=== PATIENT | male | born 1940 | race Caucasian/White ===

== ENCOUNTER 2016-03-18 20:45 | Emergency (ER) | payer OTHER, BC ==
[2016-03-18 21:05] VITALS: BP 134/77; PULSE 69; TEMP 97.7; BMI 20.9
--- NOTE | 2016-03-18 21:31 | PDOC ---
History of Present Illness - General Chief Complaint: Rash Stated Complaint: RASH Time Seen by Provider: 03/18/16 21:18 History Source: Patient Exam Limitations: No Limitations - History of Present Illness Initial Comments: 03/18/16 21:32 CC several months of occasionally itchy rash scattered over body ; see by DR Douglass DerM at [facility]; treated for Scabies x 2 treatment s x 2 weeks ago, no better Severity: Yes: mild Location: reports: generalized Modifying Factors: improves with: antihistamine, other (permethrin x 2 doses last 2 weeks ago) Past History - Past Medical History Allergies/Adverse Reactions: Allergies Allergy/AdvReac Type Severity Reaction Status Date / Time No Known Allergies Allergy Verified 03/18/16 21:02 Home Medications: Ambulatory Orders NK [No Known Home Medication] 03/18/16 - Surgical History Appendectomy: Yes - Psycho/Social/Smoking Cessation Hx Suicidal Ideation: No Smoking History: Never smoked Have you smoked in the past 12 months: No Information on smoking cessation initiated: No Hx Alcohol Use: No Drug/Substance Use Hx: No Review of Systems - Review of Systems Constitutional: No: Chills, Fever, Malaise HEENTM: No: Symptoms Reported Respiratory: No: Symptoms reported, Cough Cardiac (ROS): No: Symptoms Reported Integumentary: Yes: Rash *Physical Exam - Vital Signs Last Vital Signs Temp Pulse Resp BP Pulse Ox 97.7 F 69 14 134/77 98 03/18/16 21:03 03/18/16 21:03 03/18/16 21:03 03/18/16 21:03 03/18/16 21:03 - Physical Exam General Appearance: Yes: Appropriately Dressed. No: Apparent Distress HEENT: positive: TMs Normal, Pharynx Normal Respiratory/Chest: positive: Lungs Clear Integumentary: positive: Other (scattered red ppustulars ~ 6 noted to anterior and posterior torso; hands not involved) Medical Decision Making - Medical Decision Making 03/18/16 21:43 will refer back to local derm/ Dr Douglass or to our derm Dr Miles for 2nd opinion *DC/Admit/Observation/Transfer Diagnosis at time of Disposition: Rash and nonspecific skin eruption - Discharge Dispostion Disposition: HOME Condition at time of disposition: Stable Admit: No - Referrals Referrals: Krzysztof Goodman MD [Primary Care Provider] - Enid Miles MD [Staff Physician] - - Patient Instructions Additional Instructions: PLease follow up with Dr Miles this week or return to DR Douglass for follow up
== END 2016-03-18 21:45 | disposition home or self-care (01) ==
LOC: JERFT 20:45
DX: R21 Rash and other nonspecific skin eruption (principal)
CPT/HCPCS: 99281-25

== ENCOUNTER 2020-07-04 15:13 | Emergency (ER) | payer OTHER, BC ==
[2020-07-04 15:21] VITALS: BP 162/81; PULSE 72; TEMP 98; BMI 25.1
== END 2020-07-04 16:30 | disposition home or self-care (01) ==
LOC: JER 15:13
DX: S40.861A Insect bite (nonvenomous) of right upper arm, initial encounter (principal); S30.860A Insect bite (nonvenomous) of lower back and pelvis, initial encounter; W57.XXXA Bitten or stung by nonvenomous insect and other nonvenomous arthropods, initial encounter
CPT/HCPCS: 99283-25

== ENCOUNTER 2021-01-12 19:40 | Emergency (ER) | payer OTHER, BC ==
[2021-01-12 20:27] VITALS: BP 167/89; PULSE 74; TEMP 98.7; BMI 21.4
== END 2021-01-12 22:01 | disposition home or self-care (01) ==
LOC: JER 19:40
DX: M79.671 Pain in right foot (principal)
CPT/HCPCS: 73630-TC-RT-FY; 99283-25

== ENCOUNTER 2021-07-27 21:18 | Emergency (ER) | payer OTHER, BC ==
[2021-07-27 21:47] VITALS: BP 147/68; PULSE 86; TEMP 98.6; BMI 20.9
== END 2021-07-28 00:06 | disposition home or self-care (01) ==
LOC: JER 21:18
DX: S80.861A Insect bite (nonvenomous), right lower leg, initial encounter (principal); S80.862A Insect bite (nonvenomous), left lower leg, initial encounter; S30.860A Insect bite (nonvenomous) of lower back and pelvis, initial encounter; W57.XXXA Bitten or stung by nonvenomous insect and other nonvenomous arthropods, initial encounter
CPT/HCPCS: 99282-25

== ENCOUNTER 2022-05-10 08:37 | Observation (INO) | payer OTHER, BC ==
[2022-05-10 08:47] VITALS: BMI 20.7
[2022-05-10] MEDS ORDERED: ACETAMINOPHEN 325 MG TABLET (FP) PO ONE (09:29)
[2022-05-10] MEDS ORDERED: ACETAMINOPHEN 325 MG TABLET (FP) ONE (09:58)
[2022-05-10 10:04] LABS: BASO % 0.8 % (0-2.0); HEMATOCRIT 39.5 % (35.4-49); HEMOGLOBIN 13.7 GM/dL (11.7-16.9); LYMPH % 26.7 % (8-40); MCH 32.3 pg (25.7-33.7); MCHC 34.8 g/dl (32.0-35.9); MEAN CELL VOLUME 92.8 fl (80-96); MEAN PLT VOLUME 8.2 fl (7.5-11.1); MONO % 10.1 % (3.8-10.2); NEUT % 59.4 % (42.8-82.8); PLATELET COUNT 147 10^3/uL (134-434); RBC 4.25 M/mm3 (4.00-5.60); RDW 14.5 % (11.9-15.9); WHITE BLOOD COUNT 4.4 K/mm3 (4.0-10.0)
[2022-05-10] MEDS ORDERED: ASPIRIN 325 MG TABLET ONE (10:11)
[2022-05-10 10:12] LABS: INR 0.95 (0.83-1.09)
[2022-05-10] MEDS ORDERED: ASPIRIN 325 MG TABLET PO ONE (10:12)
[2022-05-10 10:15] LABS: ACTIVATED PTT 27.6 SECONDS (25.2-36.5)
[2022-05-10 10:24] LABS: CALCIUM 9.2 mg/dL (8.5-10.1)
[2022-05-10 10:25] LABS: ALBUMIN 3.6 g/dl (3.4-5.0); MAGNESIUM 2.6 mg/dL (1.8-2.4)
[2022-05-10 10:28] LABS: CREATININE 1.3 mg/dL (0.55-1.3)
[2022-05-10 10:30] LABS: BILIRUBIN,TOTAL 0.4 mg/dL (0.2-1); TOT PROT 6.6 g/dl (6.4-8.2)
[2022-05-10] MEDS ORDERED: ASPIRIN COATED 81 MG TABLET.EC ONE (17:54)
[2022-05-10] MEDS: ASPIRIN COATED 81 MG TABLET.EC PO SCH (17:57)
[2022-05-11] MEDS ORDERED: amLODIPine BESYLATE 5 MG TABLET (FP) PO ONE ×3 (00:19→13:16)
[2022-05-11 07:24] LABS: BASO % 0.6 % (0-2.0); EOS % 2.9 % (0-4.5); HEMOGLOBIN 13.1 GM/dL (11.7-16.9); LYMPH % 29.8 % (8-40); MCHC 34.6 g/dl (32.0-35.9); MEAN CELL VOLUME 92.5 fl (80-96); MEAN PLT VOLUME 8.6 fl (7.5-11.1); MONO % 12.2 % (3.8-10.2); NEUT % 54.5 % (42.8-82.8); PLATELET COUNT 144 10^3/uL (134-434); RBC 4.11 M/mm3 (4.00-5.60); RDW 14.7 % (11.9-15.9); WHITE BLOOD COUNT 5.1 K/mm3 (4.0-10.0)
[2022-05-11 07:41] LABS: CALCIUM 8.8 mg/dL (8.5-10.1)
[2022-05-11 07:42] LABS: BLOOD UREA NITROGEN 24.2 mg/dL (7-18)
[2022-05-11 07:44] LABS: CREATININE 1.2 mg/dL (0.55-1.3)
[2022-05-11] MEDS ORDERED: LOSARTAN POTASSIUM 50 MG TABLET PO ONE ×2 (08:24→13:16)
[2022-05-11] MEDS ORDERED: ASPIRIN COATED 81 MG TABLET.EC ONE (08:50)
[2022-05-11] MEDS ORDERED: LOSARTAN POTASSIUM 50 MG TABLET ONE (08:50)
[2022-05-11] MEDS ORDERED: amLODIPine BESYLATE 5 MG TABLET (FP) ONE (08:50)
[2022-05-11] MEDS ORDERED: amLODIPine BESYLATE 5 MG TABLET (FP) PO SCH (10:00)
[2022-05-11] MEDS: ASPIRIN COATED 81 MG TABLET.EC PO SCH (10:00)
[2022-05-11 18:29] VITALS: BP 169/102; PULSE 99; RESP 20; TEMP 97.9
== END 2022-05-11 18:30 | disposition home or self-care (01) ==
LOC: JER 08:37 → JERBED 15:40
PROVIDERS: ADMIT Internal Medicine
DX: R07.9 Chest pain, unspecified (principal); I10 Essential (primary) hypertension; R79.89 Other specified abnormal findings of blood chemistry; E78.5 Hyperlipidemia, unspecified; I83.90 Asymptomatic varicose veins of unspecified lower extremity
CPT/HCPCS: 0241U-QW; 36415; 71046-TC-FY; 80048; 80053; 82550; 83735; 84484; 85025; 85379; 85610; 85730; 93005; 93010; 93306-TC; 93970-TC; 99285-25; G0378

== ENCOUNTER 2023-12-13 14:31 | Emergency (ER) | payer OTHER, BC ==
[2023-12-13 14:51] VITALS: BP 137/80; PULSE 77; RESP 18; TEMP 98.7; BMI 20.7
[2023-12-13] MEDS: SODIUM CHLORIDE 500 ML IV STA (17:05)
[2023-12-13 17:42] LABS: HEMATOCRIT 44.2 % (35.4-49); HEMOGLOBIN 14.8 G/dL (11.7-16.9); MCHC 33.5 g/dl (32.0-35.9); MEAN CELL VOLUME 95.6 fl (80-96); MEAN PLT VOLUME 9.6 fl (7.5-11.1); PLATELET COUNT 117.1 10^3/uL (134-434); RBC 4.62 10^6/uL (4.00-5.60); RDW 14.2 % (11.9-15.9); WHITE BLOOD COUNT 4.4 10^3/uL (4.0-10.8)
[2023-12-13 17:46] LABS: PLATELET ESTIMATE DECREASED
[2023-12-13 17:51] LABS: ALBUMIN 4.5 g/dl (3.4-5.0); BILIRUBIN,TOTAL 0.7 mg/dl (0.2-1); CALCIUM 9.5 mg/dl (8.5-10.1); CREATININE 1.2 mg/dl (0.6-1.3); POTASSIUM 4.7 mmol/L (3.5-5.1); TOT PROT 6.8 g/dl (6.4-8.2)
== END 2023-12-13 18:35 | disposition home or self-care (01) ==
LOC: FER 14:31
PROC: 3E0337Z Introduction of Electrolytic and Water Balance Substance into Peripheral Vein, Percutaneous Approach (ICD-10-PCS; principal; 2023-12-13)
DX: E86.0 Dehydration (principal); R53.83 Other fatigue
CPT/HCPCS: 36415; 80053; 81003; 85027; 99284-25